=== PATIENT | male | born 2000 | race Caucasian/White ===

== ENCOUNTER 2023-01-17 19:26 | Emergency (ER) | payer BC, MEDICAID ==
[2023-01-17] MEDS ORDERED: Diphtheria,Pertussis(Acell),Tetanus Vaccine 0.5 ML Syringe IM ONE (19:50)
[2023-01-17] MEDS ORDERED: Ciprofloxacin 500 MG Tab PO ONE (19:51)
[2023-01-17] MEDS ORDERED: Bacitracin Oint 1 GM U/D Packet TOP ONE (20:00)
== END 2023-01-17 20:53 | disposition home or self-care (01) ==
LOC: JP.ED 19:26
DX: S91.332A Puncture wound without foreign body, left foot, initial encounter (principal); Z23 Encounter for immunization; W45.0XXA Nail entering through skin, initial encounter
CPT/HCPCS: 73620; 90471; 90715; 99283; A9270